=== PATIENT | female | born 1975 | race African-American/Black ===

== ENCOUNTER 2019-05-10 11:31 | Emergency (ER) | payer OTHER ==
[~2019-05-10] VITALS: Ht 165.1 cm; Wt 81.7 kg
[2019-05-10] MEDS ORDERED: MELOXICAM15 MG PO (12:43)
[2019-05-10 12:58] VITALS: BP 123/75
== END 2019-05-10 12:59 | disposition home or self-care (01) ==
LOC: M.ERS 11:31
DX: S93.692A Other sprain of left foot, initial encounter (principal); W18.39XA Other fall on same level, initial encounter; Y93.89 Activity, other specified; Y92.89 Other specified places as the place of occurrence of the external cause; Y99.8 Other external cause status; F17.210 Nicotine dependence, cigarettes, uncomplicated